=== PATIENT | female | born 1990 | race Hispanic/Latino ===

== ENCOUNTER 2019-07-28 09:35 | Emergency (ER) | payer SELFPAY ==
[2019-07-28 10:11] LABS: Pregnancy Test - Urine (BHCG) Negative (Negative); Pregu Control Background? CLEAR/WHITE (CLR/WHITE); Pregu Control Bar Appear? YES (CONTROL BAR); Specific Gravity 1.021 (1.002-1.036)
[2019-07-28] MEDS ORDERED: Acetaminophen 500 MG TAB ONE (10:21)
[2019-07-28] MEDS ORDERED: Ibuprofen 800 MG TAB ONE (10:21)
[2019-07-28] MEDS ORDERED: Cyclobenzaprine 10 MG TAB ONE (10:21)
== END 2019-07-28 10:39 | disposition home or self-care (01) ==
LOC: MADERS 09:35
DX: M54.5 Low back pain (principal)
CPT/HCPCS: 81025; 99283